=== PATIENT | male | born 1950 | race Two or more races ===

== ENCOUNTER 2022-02-07 13:39 | Inpatient (IN) | payer OTHER ==
[2022-02-07 13:57] VITALS: BMI 34.4
[2022-02-07] MEDS ORDERED: SODIUM CHLORIDE 0.9% 500 ML INFUS.BAG IV ONE (14:30)
[2022-02-07 15:08] LABS: BASO % 1.9 % (0-2.0); EOS % 1.1 % (0-4.5); HEMOGLOBIN 14.1 GM/dL (11.7-16.9); LYMPH % 13.2 % (8-40); MCH 27.9 pg (25.7-33.7); MCHC 32.8 g/dl (32.0-35.9); MEAN CELL VOLUME 85.2 fl (80-96); MEAN PLT VOLUME 7.8 fl (7.5-11.1); MONO % 15.2 % (3.8-10.2); NEUT % 68.6 % (42.8-82.8); PLATELET COUNT 203 10^3/uL (134-434); RBC 5.04 M/mm3 (4.00-5.60); RDW 17.5 % (11.9-15.9); WHITE BLOOD COUNT 8.7 K/mm3 (4.0-10.0)
[2022-02-07 15:24] LABS: CALCIUM 8.7 mg/dL (8.5-10.1)
[2022-02-07 15:26] LABS: ALBUMIN 3.7 g/dl (3.4-5.0)
[2022-02-07 15:29] LABS: CREATININE 1.6 mg/dL (0.55-1.3)
[2022-02-07 15:30] LABS: BILIRUBIN,TOTAL 0.4 mg/dL (0.2-1); TOT PROT 7.5 g/dl (6.4-8.2)
[2022-02-07 16:17] LABS: ANISOCYTOSIS 0; HELMET CELLS 0; HOWELL-JOLLY BODIES 0; MACROCYTOSIS 0; OVALOCYTE 0; ROULEAU 0; SICKELED CELLS 0; TARGET CELLS 0; TEAR DROP CELLS 0; TOXIC GRANULATION 0
[2022-02-08 07:21] LABS: BASO % 0.4 % (0-2.0); EOS % 2.8 % (0-4.5); HEMATOCRIT 40.5 % (35.4-49); HEMOGLOBIN 13.3 GM/dL (11.7-16.9); LYMPH % 36.1 % (8-40); MCH 28.1 pg (25.7-33.7); MCHC 32.9 g/dl (32.0-35.9); MEAN CELL VOLUME 85.3 fl (80-96); MEAN PLT VOLUME 7.7 fl (7.5-11.1); MONO % 18.3 % (3.8-10.2); NEUT % 42.4 % (42.8-82.8); PLATELET COUNT 207 10^3/uL (134-434); RBC 4.75 M/mm3 (4.00-5.60); RDW 17.4 % (11.9-15.9); WHITE BLOOD COUNT 5.5 K/mm3 (4.0-10.0)
[2022-02-08 07:42] LABS: CALCIUM 8.4 mg/dL (8.5-10.1)
[2022-02-08 07:44] LABS: ALBUMIN 3.5 g/dl (3.4-5.0); BLOOD UREA NITROGEN 10.9 mg/dL (7-18)
[2022-02-08 07:46] LABS: CREATININE 1.1 mg/dL (0.55-1.3)
[2022-02-08 07:47] LABS: BILIRUBIN,TOTAL 0.4 mg/dL (0.2-1); TOT PROT 7.1 g/dl (6.4-8.2)
[2022-02-08] MEDS ORDERED: BICALUTAMIDE 50 MG TABLET (FP) PO SCH (10:00)
[2022-02-08] MEDS ORDERED: amLODIPine BESYLATE 5 MG TABLET (FP) PO SCH (10:00)
[2022-02-08] MEDS ORDERED: LISINOPRIL 20 MG TABLET PO SCH (10:00)
[2022-02-08] MEDS ORDERED: ENOXAPARIN NA (PORCINE) 40 MG/0.4 ML DISP.SYRIN SQ SCH (10:00)
[2022-02-08] MEDS ORDERED: PANTOPRAZOLE 20 MG TABLET PO SCH (10:00)
[2022-02-08] MEDS ORDERED: ASPIRIN 81 MG CHEWABLE TABLETS PO SCH (10:00)
[2022-02-08] MEDS ORDERED: PATIENT'S OWN MEDICATION (NON-FORMULARY) (Amlodipine Besylate/Benazepril [Lotrel 5-40 Mg C PO SCH (10:00)
[2022-02-08] MEDS ORDERED: amLODIPine BESYLATE 5 MG TABLET (FP) ONE (10:52)
[2022-02-08] MEDS ORDERED: PANTOPRAZOLE 20 MG TABLET PO ONE (10:53)
[2022-02-08] MEDS ORDERED: LISINOPRIL 20 MG TABLET ONE (10:53)
[2022-02-08] MEDS ORDERED: ENOXAPARIN NA (PORCINE) 40 MG/0.4 ML DISP.SYRIN SQ ONE (10:53)
[2022-02-08] MEDS ORDERED: ASPIRIN 81 MG CHEWABLE TABLETS ONE (11:02)
[2022-02-08 18:54] VITALS: PULSE 84
[2022-02-08 20:02] VITALS: BP 146/83; RESP 22; TEMP 99.3
[2022-02-08] MEDS ORDERED: ATORVASTATIN CA 10 MG TABLET (FP) PO SCH (22:00)
[2022-02-08] MEDS ORDERED: OSELTAMIVIR PHOSPHATE 75 MG CAPSULE PO SCH ×2 (22:00)
== END 2022-02-08 20:36 | disposition home or self-care (01) | DRG 312 ==
LOC: JER 13:39 → SUATTDRO 13:39 → JERBED 17:49 → OBSVTOIN 23:34
PROVIDERS: ADMIT Internal Medicine; ATTEND Internal Medicine
DX: R55 Syncope and collapse (principal); I25.10 Atherosclerotic heart disease of native coronary artery without angina pectoris; E11.9 Type 2 diabetes mellitus without complications; F32.A Depression, unspecified; C61 Malignant neoplasm of prostate
CPT/HCPCS: 0241U-QW; 36415; 71046-TC-FY; 80053; 84484; 85025; 93005; 93010; 93880-TC; 99285-25; G0378